=== PATIENT | female | born 1990 | race African-American/Black ===

== ENCOUNTER 2021-12-04 13:32 | Outpatient (CLI) | payer OTHER, SELFPAY ==
--- NOTE | ~2021-12-04 | US_ITS ---
EXAMINATION: US pelvic complete w TV DATE: 12/04/2021 14:41 INDICATION: Abnormal uterine bleeding TECHNIQUE: Multiple transabdominal and endovaginal sonographic images of the pelvis were obtained. COMPARISON: 09/29/2019 FINDINGS: The uterus measures 9.8 x 5.6 x 4.3 cm. The endometrial complex measures 4 mm. The left ova ry is not visualized. There is a complex heterogeneous mass projecting in the left adnexa measuring a pproximately 4.2 x 3.6 cm which demonstrates cystic and solid components. Vascularity is noted in west e of the solid components.. The right ovary measures 3.7 x 2.7 x 2.8 cm. There is normal vascular emili w in the right ovary. There is no free fluid in the pelvis. IMPRESSION: 1. No sonographic correlate for the patient's symptoms. 2. Indeterminate left adnexal mass. Further evaluation by MRI without and with contrast is recommende d. Reviewed, dictated and finalized at location F. CTOR OF COMMUNICATIONS IMPRESSION: 1. No sonographic correlate for the patient's symptoms. 2. Indeterminate left adnexal mass. Further evaluation by MRI without and with contrast is recommended.
== END 2021-12-04 13:33 | disposition home or self-care (01) ==
PROVIDERS: Visit Provider Nurse Practitioner
DX: N93.9 Abnormal uterine and vaginal bleeding, unspecified (principal); N85.9 Noninflammatory disorder of uterus, unspecified
CPT/HCPCS: 76830; 76856

== ENCOUNTER 2021-12-13 12:10 | Outpatient (CLI) | payer OTHER, SELFPAY ==
[2021-12-17 01:10] LABS: CA-125 24 U/mL (<35)
== END 2021-12-13 12:11 | disposition home or self-care (01) ==
LOC: ANHLAB 12:13
PROVIDERS: Visit Provider Obstetrics & Gynecology Gynecology
DX: R19.09 Other intra-abdominal and pelvic swelling, mass and lump (principal)
CPT/HCPCS: 36415; 86304

== ENCOUNTER 2021-12-27 10:42 | Outpatient (CLI) | payer OTHER, SELFPAY ==
--- NOTE | ~2021-12-27 | MR_ITS ---
EXAMINATION: MR pelvis wo/w con INDICATION: Left adnexal mass TECHNIQUE: Coronal SSFSE ARC, Coronal, Axial, and Sagittal T2 FRFSE small ysoow-sg-cpdy, Coronal 2D F IESTA FatSat, Axial SSFSE BH ARC, Axial 3D DualEcho BH, Axial STIR, Axial DWI b=500, pre and dynamic postcontrast Axial LAVA ARC COMPARISON: Ultrasound, 12/04/2021 CONTRAST: Multihance, 10 cc FINDINGS: There is an approximately 5.8 x 4.2 cm complex mass of the pelvis situated between the body of the uterus and the rectum. The mass demonstrates multiple cystic components with areas of thicken ed septation and cyst within the septations. There is minimal enhancement of the septations on postco ntrast images. There are areas of internal hyperintense T1 signal on precontrast images, consistent w ith hemorrhagic or proteinaceous fluid. The ovaries are difficult to discern. There appears to be a 9 mm intramural fibroid in the uterine fundus. No pathologically enlarged pelvic lymph nodes are ident ified. The bladder appears normal. IMPRESSION: 1. Complex cystic and solid mass of the pelvis positioned between the uterus and rectum. Findings cou ld be due to ovarian neoplasm or possibly endometriosis versus other pelvic inflammatory process. Leighann gical evaluation is recommended. Reviewed, dictated and finalized at location B. IMPRESSION: 1. Complex cystic and solid mass of the pelvis positioned between the uterus an d rectum. Findings could be due to ovarian neoplasm or possibly endometriosis v ersus other pelvic inflammatory process. Surgical evaluation is recommended.
[2021-12-27 11:25] LABS: Estimated Glomerular Filt Rate > 60
== END 2021-12-27 10:43 | disposition home or self-care (01) ==
PROVIDERS: Visit Provider Obstetrics & Gynecology Gynecology
DX: R19.09 Other intra-abdominal and pelvic swelling, mass and lump (principal)
CPT/HCPCS: 72197; A9577

== ENCOUNTER 2022-02-28 13:07 | Outpatient (CLI) | payer OTHER, SELFPAY ==
[2022-02-28 13:31] LABS: Hematocrit 37.3 % (37.0-47.0); Hemoglobin 11.7 g/dL (12.0-15.0)
== END 2022-02-28 13:08 | disposition home or self-care (01) ==
PROVIDERS: Visit Provider Anesthesiology
DX: D64.9 Anemia, unspecified (principal); Z01.818 Encounter for other preprocedural examination
CPT/HCPCS: 36415; 85014; 85018

== ENCOUNTER 2022-03-02 03:05 | Day surgery (SDC) | payer OTHER, SELFPAY ==
[2022-02-25 10:22] VITALS: BMI 20.7
--- NOTE | 2022-02-25 10:29 | PC.NURSE ---
Report to the Outpatient Waiting Room, entrance under the green pavilion located off [facility], at 0715 on 03-02-22. OR Time: 09. - You and your visitor will be asked a series of questions to screen for COVID 19 for your protection. - Only one visitor is allowed at this time. - The patient visitor is requested to leave or wait in car when not with patient. - A mask is required within the hospital. Patients may have clear liquids (water, carbonated beverages, clear teas, apple juice) until 3 hours prior to surgery with a maximum of 20 ounces. 0615 - No food from midnight until time of surgery - Infants may have breast milk until 4 hours before surgery, infant formula 6 hours prior to surgery. - Children will be allowed to drink immediately following surgery. If applicable, please bring a bottle or sippy cup to assist with drinking. Juice, water, soda, and popsicles are readily available. For infants on formula, please bring formula the day of surgery. Pacifiers are allowed. Take the following medications with a SIP of water the morning of surgery: control Medications to discontinue per physician: Vitamins and supplements Date to take last dose: 02-27-22 Please no make-up, nail chinese, hairspray, perfume, deodorant, or body powder the day of surgery. No jewelry (including any body piercings) or valuables the day of surgery, leave them at home. Please take a shower or bath the night before, or the morning of, surgery with an antibacterial soap. Wear comfortable, loose fitting clothing. Children are encouraged to wear pajamas. - Jewelry must be removed prior to entering the operating room. Rings and piercings that are not removed may be cut off. - The hospital will not accept responsibility for valuables. - Please leave all valuables, including medications, at home the day of surgery. If you are going home after surgery, a licensed lease purchase driver must drive you home. - NO public transportation without another adult. - We recommend that an adult stay with you for 24 hours following discharge. - We also recommend that you do not drive, make important decision, drink alcoholic beverages, or take any drugs that were not prescribed by your health care provider for at least 24 hours after your discharge time. For Pediatric surgeries, we recommend two adults accompany the child home (only one inside the building at this time). Follow any additional instructions given to you from your surgeon. If you or anyone in your household have experienced Covid symptoms in the past week, please notify your surgeon or the nurse liaison at the phone number below for possible testing. Telephone instructions given to Meghan Mendiola and asked if any additional questions and then verbalized understanding. Patient advised to call surgeon office or pre surgery nurse liaison [phone] if any additional questions.
[2022-03-02] VITALS (9 sets, daily range): BP systolic 93–113; BP diastolic 44–67; PULSE 68–107; RESP 14–22; TEMP 36.5–37.3; O2SAT 99–100
[2022-03-02] MEDS: ACETAMINOPHEN 500 MG TABLET 1000 MG PO (07:23)
--- NOTE | 2022-03-02 07:27 | WPDHPUPDATE1 ---
History and Physical Update Update Date/Time: 03/02/22 07:27 History and Physical has been reviewed, including an updated exam of the patient. There are NO changes in the patient's condition. Risks, benefits, and alternatives have been discussed and questions answered. Patient agrees to proceed with procedure.
--- NOTE | 2022-03-02 07:28 | P.HP_ITS ---
History of Present Illness History of Present Illness Consent: Risks, benefits, and alternatives have been discussed and questions answered. Patient agrees to proceed with procedure. Chief complaint: left ovarian mass Narrative: Meghan Mendiola is a 31 year old female found to have a 5.8x4.2 complex pelvic mass posterior to the uterus. The right ovary measures separately at 3.7x2.7x2.8 the mass appears to possibly arise from the left ovary. It was recommended to proceed with MRI which the patient did undergo. The side to the pelvic mass there are no other abnormalities noted. There are no and enlarged lymph nodes and no free fluid. CA 125 is normal at 24. After all testing was completed the patient had an office consult to discuss the plan. It was recommended to proceed with removal the mass. The plan is for diagnostic laparoscopy possible left salpingo-oophorectomy possible exploratory laparotomy. Risks of infection, bleeding, injury to internal organs (small bowel, large bowel, ureters, uterus, tubes, and ovaries), DVT, and general a nesthesia are reviewed. Possible pathology is also discussed. Patient voices understanding and agrees to proceed. Review of Systems Review of Systems: not repeated day of surgery; patient states no changes in status PMFSH Social History Social History Smoking status: Never smoker Second hand tobacco smoke exposure: No Alcohol intake: current Alcohol use details: occasionally/socially Substance use: never Substance use type: does not use Living arrangements: with family Spiritual care concerns: No Meds Home Medications and Allergies Home Medications Medication Instructions Recorded Confirmed Type norethindrone-e.estradiol-iron 1 tablet PO DAILY 02/25/22 03/02/22 History Allergies Allergy/AdvReac Type Severity Reaction Status Date / Time No Known Allergies Allergy Verified 03/02/22 07:22 Exam Const: General: healthy appearing and alert Orientation/consciousness: patient oriented x3 Resp: Effort & Inspection: normal respiratory effort Auscultation: clear to auscultation bilaterally Cardio: Rate: regular rate Rhythm: regular rhythm GI: GI Palp: Yes Soft to palpation, No Tenderness to palpation present (GI) and No Palpable mass present : External Female Exam: normal external appearance Speculum Exam - Vagina: normal appearance of the vagina and normal vaginal discharge Speculum Exam - Cervix: normal appearance of the cervix Bimanual exam- vagina & uterus: uterine size normal, consistency normal and other ( uterus palpates as enlarged however by scan is likely the mass) Bimanual Exam- Adnexa, other: normal adnexae and No adnexal tenderness Neuro: General: patient oriented x3 Assessment and Plan Assessment and plan (1) Pelvic mass: Code(s): R19.00 - Intra-abdominal and pelvic swelling, mass and lump, unspecified site Status: Acute Assessment and Plan: Possibly arising from the left ovary although unsure. Plan is to proceed with diagnostic laparoscopy and removal of the mass. Possible left salpingo- oophorectomy possible exploratory laparotomy.
[2022-03-02] MEDS: LACTATED RINGERS 1,000 ML 30 ML IV CONT ×2 (07:53→11:53)
[2022-03-02] MEDS: KETOROLAC 15 MG/ML VIAL (*BKC) IV PUSH (07:55)
--- NOTE | 2022-03-02 08:18 | P.PNAN_ITS ---
Anes - Initial Pre Proc Eval Procedure: Operation Date: 03/02/22 09:15 Proposed Procedures p Diagnostic Laparoscopy, Possible Left Salpingo-Oophorectomy, Possible Exploratory Laparotomy - Lydia Navas MD Date/Time: 03/02/22 08:18 Surgeon: Lydia Navas MD Pre Op Diagnosis: left ovarian mass Patient Data Age: 31 Gender: F Height: 1.65 m Weight: 56.5 kg Last Vital Signs Temp 37.3 C 03/02/22 07:56 Pulse 78 03/02/22 07:56 Resp 16 03/02/22 07:56 BP 103/67 03/02/22 07:56 Pulse Ox 100 03/02/22 07:56 Allergies Allergy/AdvReac Type Severity Reaction Status Date / Time No Known Allergies Allergy Verified 03/02/22 07:22 Home Medications Medication Instructions Recorded Confirmed Type norethindrone-e.estradiol-iron 1 tablet PO DAILY 02/25/22 03/02/22 History Patient hx anesthesia problems: none Family hx anesthesia problems: none Results Review: All pre-operative results and documents have been reviewed as part of the pre-operative evaluation. [facility] Surgical History Surgical History (Updated 03/02/22 @ 08:19 by Harry Ramsey MD) H/O wisdom tooth extraction Social History Social History Smoking status: Never smoker Second hand tobacco smoke exposure: No Alcohol intake: current Alcohol use details: occasionally/socially Substance use: never Substance use type: does not use Living arrangements: with family Spiritual care concerns: No Anes - Eval Final PreProcedure Day of Procedure 03/02/22 08:18 Patient weight: normal Heart: regular rate and rhythm Lungs: clear to auscultation Airway: Mallampati scale class II Neurological: alert and oriented Last oral intake: >/= 8 hours ASA classification: I Emergent: no Anesthetic plan: proceed Anesthesia type and monitoring: general ETT and standard monitoring Results Review: All pre-operative results and documents have been reviewed as part of the pre-operative evaluation. Informed Consent: The patient's anesthetic plan and its attendant risks and benefits were discussed with the patient/family/POA. Questions were solicited and answers provided to the satisfaction of the patient/family/POA.
[2022-03-02] MEDS: METHYLENE BLUE 0.5% INJ 10 ML AMPULE XX (11:24)
--- NOTE | 2022-03-02 11:41 | PM.OP ---
Procedure Note - Brief Procedure Note - Brief Date of procedure: 03/02/22 Pre-op diagnosis: left ovarian mass Post-op diagnosis: Other (Appendicitis) Procedure performed: Laparoscopic appendectomy Anesthesia: ABRAHAM Surgeon: Clement Navarro DO Estimated blood loss (mL): 10 Pathology: Yes (appendix) Complications: No immediate complications Condition: Stable Disposition: Same day
--- NOTE | 2022-03-02 11:47 | W.PM.PROC2 ---
Procedure Note - Detailed Date of Procedure 03/02/22 Pre-op Diagnosis left ovarian mass Post-op Diagnosis Other (Extensive pelvic adhesive disease) Procedure Performed Diagnostic laparoscopy and chromopertubation performed by Dr. Navas Extensive adhesiolysis and appendectomy performed by Dr. Michelle see his dictation for details Surgeon Lydia Navas MD Anesthesia General Findings Initial laparoscopic findings revealed the appendix to be deeply adherent to the right lower quadrant uterus and pelvic sidewall. Sigmoid colon and small bowel adherent to the posterior fundus. Bilateral severe hydrosalpinx. No specific adnexal masses identified. Hydrosalpinx are densely adherent to the ipsilateral ovaries. The right tube and ovary are adherent to the posterior fundus. Left tube and ovary are adherent to the cul-de-sac. No endometriosis was noted. Description of Procedure The patient was taken to operating room and placed under anesthesia in the dorsal lithotomy position. She was prepped and draped in the usual sterile fashion. Bladder was drained with a Webster catheter. [place] speculum was placed in the vagina and the cervix grasped on the anterior lip with a tenaculum. The uterus is unable to be sounded therefore an acorn manipulator was placed. The speculum was removed and attention was turned to the abdomen. A vertical skin incision was made at the base of the umbilicus. The abdomen is tented and the Veress needle placed. Water drop test is normal and opening patient pressure was 4mmHg. A pneumoperitoneum was obtained to a patient pressure of 15 mmHg. The Veress needle is removed and a 5mm Optiview trocar was placed while tenting the abdomen with towel clamps. The intra-abdominal placement was confirmed with the laparoscope. The patient is placed in Trendelenburg and a 5mm incision was made 2cm above the symphysis pubis. A 5mm trocar is placed under direct visualization. The blunt probe is used to investigate the pelvis with the above-stated findings. General surgery was requested and Dr. Michelle arrived to the operating room. At this point he proceeded to dissect the appendix and bowel away from the operative field. He also performed an appendectomy. Please see his dictation for details. Once the tubes and ovaries were able to be visualized, a chromopertubation was performed. Bilateral tubal patency was noted. Blunt probe was used to bring both ovaries into the field and no masses are noted. The right tube and ovary are adherent to the pelvic sidewall and the posterior uterus the left tube and ovary are able to be freed from the cul-de-sac. Adhesions from the fundus were removed and sent as a specimen. Decision was made to stop the procedure at this point as no masses were noted both ovaries were left in-situ. The pelvis was irrigated and instruments were removed. The 12mm port that Dr. Michelle had previously added was closed using 0 Vicryl in a epabxl-fl-zgfus suture. Skin incisions were closed using 4-0 Monocryl in a subcuticular fashion. Dermaflex was placed over each incision. Vaginal instruments are removed. Sponge, needle, and instrument counts are correct per the OR staff. Patient was awakened from anesthesia and taken to recovery in stable condition. Estimated Blood Loss 50 Drains No Packing No Pathology Yes (Appendix and serosal adhesions) Complications No immediate complications Condition Stable Disposition PACU
[2022-03-02] MEDS: fentaNYL CITRATE INJ (*CRX) 100 MCG/2 ML VIAL 25 MCG IV PUSH ×4 (12:20→12:34)
[2022-03-02] MEDS: oxyCODONE HCL (*CRX) 5 MG TAB IR PO (13:15)
--- NOTE | 2022-03-02 14:56 | P.CONGS_ITS ---
Assessment and Plan Assessment and plan (1) Pelvic mass: Code(s): R19.00 - Intra-abdominal and pelvic swelling, mass and lump, unspecified site Status: Acute Assessment and Plan: * Decision made intra-operatively to perform further adhesiolysis and possible laparoscopic appendectomy. History of Present Illness Consult details Consult date: 03/02/22 Requesting physician: Lydia Navas MD Narrative: This is a 31-year-old woman who I am asked to evaluate intraoperatively for a pelvic mass possibly involving the appendix. I am unable to get history from the patient due to her being intubated in surgery. History is obtained from Dr. Navas. Patient was evaluated for a pelvic mass but was relatively asymptomatic. She was not experiencing pelvic pain, fevers, other symptoms. A pelvic ultrasound showed an adnexal mass, and MRI showed a complex cystic mass between the uterus and rectum. During laparoscopy, the appendix was noted to be densely adherent to the uterus and was tracing down near where the pelvic mass was. Am now asked to evaluate for possible appendectomy or other general surgical procedure. Review of Systems Review of Systems: ROS unobtainable: Yes unobtainable due to endotracheal tube PMFSH Surgical History Surgical History H/O wisdom tooth extraction Social History Social History Smoking status: Never smoker Second hand tobacco smoke exposure: No Alcohol intake: current Alcohol use details: occasionally/socially Substance use: never Substance use type: does not use Living arrangements: with family Spiritual care concerns: No Meds Home Medications and Allergies Home Medications Medication Instructions Recorded Confirmed Type norethindrone-e.estradiol-iron 1 tablet PO DAILY 02/25/22 03/02/22 History hydrocodone-acetaminophen 1 tablet PO Q4H PRN #14 tablet 03/02/22 Rx Allergies Allergy/AdvReac Type Severity Reaction Status Date / Time No Known Allergies Allergy Verified 03/02/22 07:22 Vital Signs Vital Signs - 24 hr 03/02/22 07:56 03/02/22 11:55 03/02/22 12:10 Temperature 37.3 C 36.5 C Pulse Rate 78 107 H 73 Respiratory Rate 16 22 H 16 Blood Pressure 103/67 94/44 L 96/55 L Pulse Oximetry 100 100 100 03/02/22 12:25 03/02/22 12:40 03/02/22 12:55 Temperature Pulse Rate 72 68 76 Respiratory Rate 14 14 14 Blood Pressure 93/59 L 96/56 L 95/61 L Pulse Oximetry 100 99 100 03/02/22 12:58 03/02/22 13:20 03/02/22 13:50 Temperature Pulse Rate 69 73 86 Respiratory Rate 14 14 14 Blood Pressure 113/65 105/62 105/65 Pulse Oximetry Exam Narrative: Unable to perform full physical exam due to patient being on the operating table. Results Labs Labs: All other labs normal.
--- NOTE | 2022-03-02 15:18 | W.PM.PROC2 ---
Procedure Note - Detailed Date of Procedure 03/02/22 Pre-op Diagnosis left ovarian mass Post-op Diagnosis Other (Appendicitis) Procedure Performed Laparoscopic appendectomy Surgeon Clement Navarro, DO Indications I was asked to evaluate the patient intraoperatively for possible appendectomy. While performing a laparoscopy for pelvic mass, the appendix was noted entering down into the region where the pelvic mass was. Decision was made to assist in the surgery and perform further adhesiolysis with possible laparoscopic appendectomy. Findings After inspecting the pelvis and lower abdomen laparoscopically, I was able to identify the appendix. The base appeared healthy and viable, but the midportion of the appendix appeared to enter down into the low pelvis just lateral and posterior to the uterus. It was densely adherent to the right adnexa. I was able to free up the adhesions and identified appendix. It did appear to be heavily scarred. Decision was made to remove the appendix. Further dissection was carried out around the sigmoid colon to free up the left adnexa from the sigmoid colon. No other abnormalities were noted with the sigmoid colon or upper rectum. Description of Procedure The patient is already intubated and in lithotomy position with her abdomen prepped and draped and 2 5 mm ports placed laparoscopically. I chose to place another 5 mm port in the left lower quadrant to help facilitate dissection. Careful blunt dissection was carried out around the right lower quadrant to identify the base of the appendix. The adnexal adhesions were carefully taken down along the length of the appendix to free up the appendix completely and deliver it away from the pelvic structures. Further blunt dissection was then carried out around the right adnexa to identify the sigmoid colon and free up any adhesions around the sigmoid colon. The sigmoid colon appeared healthy and viable. Decision was made to proceed with appendectomy. The 5 mm port in the left lower quadrant was exchanged for a 12 mm port. A window was created in the mesoappendix using blunt dissection with a Dorothy grasper. A 45 mm blue load stapler was then advanced across the base of the appendix and clamped and fired. A white load stapler was then clamped across the mesoappendix and fired. This freed up the appendix completely and it was placed in an Endo-Catch bag and removed through the left lower quadrant port. The staple lines were then carefully inspected and hemostasis appeared adequate. The lower abdomen was then carefully inspected further and the pelvis was further inspected. Hemostasis appeared adequate no other abnormalities were noted. The area was irrigated with about 200 mL of sterile saline. Please refer to Dr. Navas's report for her portion of the procedure. The ports were then removed, and pneumoperitoneum was released. The fascia of the left lower quadrant incision was approximated using an 0 Vicryl [id number] suture. The skin of the incisions was then approximated using 4 Monocryl subcuticular sutures. Patient was then awakened from anesthesia, extubated, and transferred to recovery. Estimated Blood Loss 50 Urine Output -50.0 Pathology Yes (appendix) Complications No immediate complications Condition Stable Disposition Same day [facility] Billing Surgery - Charge Forward: Surgery Billing
== END 2022-03-02 14:00 | disposition home or self-care (01) ==
PROVIDERS: Surgery; Visit Provider Obstetrics & Gynecology Gynecology
PROC: (CPT 49320; principal; 2022-03-02 09:15)
PROC: 0DTJ4ZZ Resection of Appendix, Percutaneous Endoscopic Approach (ICD-10-PCS; CPT 44970; 2022-03-02 09:15)
DX: N80.5 Endometriosis of intestine (principal); N73.6 Female pelvic peritoneal adhesions (postinfective); N70.11 Chronic salpingitis
CPT/HCPCS: 44970; 58662; 36415; 86850; 86900; 86901; 88304; 88305; A9270; J1100; J1170; J1885; J2250; J2405; J2704; J2710; J3010; J7120; Q9968